=== PATIENT | female | born 1990 | race Caucasian/White ===

== ENCOUNTER → 2017-03-01 | Outpatient (CLI) | payer SELFPAY | LOC: RAD 14:03 | PROVIDERS: ATTEND Nurse Practitioner Women's Health | DX: O20.8 Other hemorrhage in early pregnancy (principal); Z3A.01 Less than 8 weeks gestation of pregnancy | CPT/HCPCS: 76801 ==

== ENCOUNTER 2017-03-23 14:51 | Emergency (ER) | payer MEDICAID ==
--- NOTE | 2017-03-23 16:17 | ER Document Report ---
ED Medical Screen (RME) - General Chief Complaint: Pelvic Pain Stated Complaint: PELVIC PAIN Time Seen by Provider: 03/23/17 16:15 Mode of Arrival: Ambulatory Information source: Patient Notes: This is a 26-year-old female who is 10 weeks (history of ultrasound at 7 weeks) who presents with sharp right lower quadrant pain. Patient denies fever. Patient denies any blood in the urine. Patient denies vaginal bleeding TRAVEL OUTSIDE OF THE [place] IN LAST 30 DAYS: No - Related Data Allergies/Adverse Reactions: No Known Allergies Allergy (Verified 03/23/17 16:09) Past Medical History Renal/ Medical History: Denies: Hx Peritoneal Dialysis Physical Exam - Vital signs Vitals: Temp Pulse Resp BP Pulse Ox 98.3 F 92 18 144/100 H 100 03/23/17 15:06 03/23/17 15:06 03/23/17 15:06 03/23/17 15:06 03/23/17 15:06 Course - Vital Signs Vital signs: Temp Pulse Resp BP Pulse Ox 98.3 F 92 18 144/100 H 100 03/23/17 15:06 03/23/17 15:06 03/23/17 15:06 03/23/17 15:06 03/23/17 15:06
[2017-03-23 16:55] LABS: ABSOLUTE EOSINOPHILS # (AUTO) 0.1 10^3/uL (0.0-0.6); ABSOLUTE LYMPHOCYTES (AUTO) 1.6 10^3/uL (0.5-4.7); ABSOLUTE MONOCYTES (AUTO) 0.7 10^3/uL (0.1-1.4); ABSOLUTE NEUT (AUTO) 8.8 10^3/uL (1.7-8.2); BASOPHILS % (AUTO) 0.2 % (0-2); EOSINOPHILS % (AUTO) 1.3 % (0-6); HEMATOCRIT 40.5 % (36.0-47.0); HGB HCT DIFFERENCE 1.5; MEAN CORPUSCULAR HEMOGLOBIN 30.5 pg (27.0-33.4); MEAN CORPUSCULAR HGB CONC 34.4 g/dL (32.0-36.0); MEAN CORPUSCULAR VOLUME 88 fl (80-97); MONOCYTES % (AUTO) 6.1 % (3-13); RED BLOOD COUNT 4.58 10^6/uL (3.72-5.28); RED CELL DISTRIBUTION WIDTH 12.5 % (11.5-14.0); SEGMENTED NEUTROPHILS % (AUTO) 78.4 % (42-78); WHITE BLOOD COUNT 11.2 10^3/uL (4.0-10.5)
[2017-03-23 17:01] LABS: APPEARANCE,URINE SLIGHTLY-CLOUDY; BILIRUBIN,URINE NEGATIVE (NEGATIVE); GLUCOSE, URINE NEGATIVE (NEGATIVE); KETONES,URINE NEGATIVE (NEGATIVE); LEUKOCYTE ESTERASE,URINE NEGATIVE (NEGATIVE); NITRITE,URINE NEGATIVE (NEGATIVE); PROTEIN,URINE NEGATIVE (NEGATIVE); URINE SPECIFIC GRAVITY 1.018; UROBILINOGEN,URINE NEGATIVE mg/dL (<2.0)
[2017-03-23 17:22] LABS: ALANINE AMINOTRANSFERASE 24 U/L (9-52); ALBUMIN 4.1 g/dL (3.5-5.0); ALKALINE PHOSPHATASE 88 U/L (38-126); ANION GAP 9 (5-19); ASPARTATE AMINO TRANSFERASE 19 U/L (14-36); BILIRUBIN,DIRECT 0.4 mg/dL (0.0-0.4); BILIRUBIN,TOTAL 0.6 mg/dL (0.2-1.3); BLOOD UREA NITROGEN 8 mg/dL (7-20); CALCIUM 9.9 mg/dL (8.4-10.2); CARBON DIOXIDE 26 mmol/L (22-30); CHLORIDE 103 mmol/L (98-107); GLUCOSE 116 mg/dL (75-110); POTASSIUM 4.4 mmol/L (3.6-5.0); SODIUM 138.2 mmol/L (137-145); TOTAL PROTEIN 7.3 g/dL (6.3-8.2)
--- NOTE | 2017-03-23 17:35 | ER Document Report ---
ED GI/ - General Mode of Arrival: Ambulatory Information source: Patient TRAVEL OUTSIDE OF THE [place] IN LAST 30 DAYS: No - HPI Patient complains to provider of: Abdominal pain - RLQ Onset: This morning Location: LLQ, RLQ Vaginal bleeding (Compared to normal period): None Associated symptoms: Other - see notes above <MARY BETH BAINS - Last Filed: 03/23/17 17:30> <JAYNE NEUMANN - Last Filed: 03/23/17 20:41> - General Chief Complaint: Pelvic Pain Stated Complaint: PELVIC PAIN Time Seen by Provider: 03/23/17 16:15 Notes: 26 year old female (10 weeks; ) presents to the ED complaining of bilateral lower quadrant abdominal pain that started at 0630 this morning. Patient reports the pain waxes and wanes between a sharp pain and an irritating pain. Patient states that the pain does not radiate to her back, but explains that it was exacerbated after urinating earlier today. Patient denies fever, hematuria, or vaginal bleeding. [facility] and has an appointment tomorrow to set her up with an PLACEMENT COORDINATOR. (MARY BETH BAINS) - Related Data Allergies/Adverse Reactions: No Known Allergies Allergy (Verified 03/23/17 16:09) Past Medical History - General Information source: Patient - Social History Smoking Status: Unknown if Ever Smoked Family History: Reviewed & Not Pertinent Patient has suicidal ideation: No Patient has homicidal ideation: No <MARY BETH BAINS - Last Filed: 03/23/17 17:30> - Social History Cigarette use (# per day): No Chew tobacco use (# tins/day): No Smoking Education Provided: No Frequency of alcohol use: None Family History: Hypertension. denies: Reviewed & Not Pertinent <JAYNE NEUMANN - Last Filed: 03/23/17 20:41> Review of Systems - Review of Systems Constitutional: No symptoms reported EENT: No symptoms reported Cardiovascular: No symptoms reported Respiratory: No symptoms reported Gastrointestinal: See HPI, Abdominal pain - bilateral lower quadrants Genitourinary: No symptoms reported Female Genitourinary: No symptoms reported Musculoskeletal: No symptoms reported Skin: No symptoms reported Hematologic/Lymphatic: No symptoms reported Neurological/Psychological: No symptoms reported <MARY BETH BAINS - Last Filed: 03/23/17 17:30> Physical Exam - General General appearance: Alert In distress: None - HEENT Head: Normocephalic, Atraumatic Eyes: Normal Extraocular movements intact: Yes Pupils: PERRL - Respiratory Respiratory status: No respiratory distress Breath sounds: Normal - Cardiovascular Rhythm: Regular Heart sounds: Normal auscultation - Abdominal Inspection: Normal Distension: No distension Tenderness: Tender - Bilateral pelvic pain with the right worse than left. - Back Back: Normal, Nontender. No: CVA tenderness - Extremities General upper extremity: Normal inspection, Normal ROM General lower extremity: Normal inspection, Normal ROM - Neurological Neuro grossly intact: Yes - Psychological Associated symptoms: Normal affect, Normal mood - Skin Skin Temperature: Warm Skin Moisture: Dry Skin Color: Normal <MARY BETH BAINS - Last Filed: 03/23/17 17:30> Course - Laboratory Result Diagrams: 03/23/17 16:41 03/23/17 16:41 <MARY BETH BAINS - Last Filed: 03/23/17 17:30> - Laboratory Result Diagrams: 03/23/17 16:41 03/23/17 16:41 - Diagnostic Test Radiology reviewed: Reports reviewed - Ultrasound shows a 10 week IUP with heart rate 175. There are no abnormalities seen. Ovaries were not seen due to overlying bowel gas. <JAYNE NEUMANN - Last Filed: 03/23/17 20:41> - Re-evaluation Re-evalutation: 03/23/17 20:36 The patient's blood pressure was elevated today with initial reading 144/101. The patient does have a family history of high blood pressure, and she reports her blood pressure was running high prior to her . (JAYNE NEUMANN) - Vital Signs Vital signs: Temp Pulse Resp BP Pulse Ox 98.3 F 83 18 131/72 H 98 03/23/17 15:06 03/23/17 18:53 03/23/17 15:06 03/23/17 18:53 03/23/17 18:53 - Laboratory Laboratory results interpreted by me: 03/23/17 03/23/17 03/23/17 16:41 16:41 16:41 WBC 11.2 H Seg Neutrophils % 78.4 H Absolute Neutrophils 8.8 H Glucose 116 H Urine Ascorbic Acid 40 H Discharge <MARY BETH BAINS - Last Filed: 03/23/17 17:30> <JAYNE NEUMANN - Last Filed: 03/23/17 20:41> - Discharge Clinical Impression: with 10 completed weeks gestation, Right lower quadrant abdominal pain High blood pressure Qualifiers: Hypertension type: essential hypertension Qualified Code(s): I10 - Essential ( primary) hypertension Condition: Stable Disposition: HOME, SELF-CARE Additional Instructions: Abdominal Pain: There are many causes of abdominal pain. Pain can mean a serious problem requiring surgery (such as appendicitis). It can also be an innocent problem that goes away on its own (such as a viral infection). Often, time must pass to determine the cause of pain. The physician does not feel that hospitalization is necessary, at present. Things may change within the next 24 hours. Call the doctor or come back for re- examination if any problems occur, such as: (1) Pain that becomes more severe, steady, or becomes concentrated in one specific area. Also, pain that is more severe with movement or coughing. (2) Vomiting that persists or becomes more frequent. (3) Blood in the vomitus, urine, or bowel movements. Blood in the stool may have a tarry or black appearance. (4) Shaking chills or fever greater than 100 degrees F. (5) The abdomen becomes more distended or swollen. (6) Bowel movements cease. (7) Failure to improve as expected. High Blood Pressure: When your blood pressure was taken today it was elevated. Today's reading was_144/101___. Hypertension: The patient has been informed that they may have Hypertension based on a blood pressure reading in the emergency department. I recommend that the patient call their primary care provider or a physician of their choice this week to arrange follow up for further evaluation of Hypertension. Sometimes, stress or illness causes a temporary elevation of your blood pressure. We suggest that you get your blood pressure measured three more times during the next few days to see if this is more than a temporary abnormality. If your blood pressure is greater than 150/90 on each occasion, you must have treatment. Some simple things you can do to help are: If you have blood pressure medicine but aren't using it regularly, start taking it again. Get some aerobic exercise for at least 20 minutes on a daily basis. (See your doctor before beginning a new exercise program.) Eat a low-fat diet. Lose excess weight. Avoid salty foods and avoid adding salt to any of the foods you eat. Avoid diet pills, decongestants, "energizing" herbs, and other medicines that elevate blood pressure. If left untreated, hypertension greatly enhances your risk for developing heart disease and strokes. Please don't ignore this problem. YOUR ULTRASOUND SHOWED A NORMAL 10 WEEK . NO CLEAR EXPLANATION WAS FOUND FOR YOUR PAIN. YOUR BLOOD PRESSURE WAS ELEVATED. FOLLOW UP WITH A LOCAL MEDICAL DOCTOR TO EVALUATE AND TREAT YOUR ELEVATED BLOOD PRESSURE. FOLLOW UP WITH THE HEALTH DEPARTMENT TOMORROW SCHEDULED. TAKE TYLENOL FOR PAIN IF NEEDED. LIMIT ACTIVITY UNTIL THE PAIN RESOLVES. RETURN TO THE EMERGENCY ROOM IF ANY NEW OR WORSENING SYMPTOMS. Salazar Attestation: 03/23/17 20:41 I personally performed the services described in the documentation, reviewed and edited the documentation which was dictated to the scribe in my presence, and it accurately records my words and actions. (JAYNE NEUMANN) Scribe Documentation - Scribe Written by Salazar:: Salazar Sahni, 03/23/2017 1737 acting as scribe for :: Jenny <MARY BETH BAINS - Last Filed: 03/23/17 17:30>
[2017-03-23 20:51] VITALS: BP 131/82
== END 2017-03-23 20:49 | disposition home or self-care (01) ==
LOC: ER 14:51
DX: O26.91 Pregnancy related conditions, unspecified, first trimester (principal); R10.2 Pelvic and perineal pain; O16.1 Unspecified maternal hypertension, first trimester; Z3A.10 10 weeks gestation of pregnancy
CPT/HCPCS: 36415; 76801; 80053; 81001; 85025; 86900; 86901; 99284

== ENCOUNTER → 2017-05-25 | Outpatient (CLI) | payer MEDICAID ==
[2017-05-25 15:41] LABS: CREATININE 0.51 mg/dL (0.52-1.25)
[2017-05-25 15:46] LABS: URINE CREATININE 94.4 mg/dL (16-327)
== END ==
LOC: OD 14:21
PROVIDERS: ATTEND Obstetrics & Gynecology
DX: O10.012 Pre-existing essential hypertension complicating pregnancy, second trimester (principal)
CPT/HCPCS: 36415; 82575; 84156

== ENCOUNTER → 2017-08-02 | Outpatient (CLI) | payer MEDICAID ==
[2017-08-02 16:13] LABS: HEMATOCRIT 33.4 % (36.0-47.0); HEMOGLOBIN 11.7 g/dL (12.0-15.5); HGB HCT DIFFERENCE 1.7; MEAN CORPUSCULAR HEMOGLOBIN 30.1 pg (27.0-33.4); MEAN CORPUSCULAR VOLUME 86 fl (80-97); RED BLOOD COUNT 3.89 10^6/uL (3.72-5.28); RED CELL DISTRIBUTION WIDTH 13.5 % (11.5-14.0); WHITE BLOOD COUNT 14.3 10^3/uL (4.0-10.5)
[2017-08-02 16:17] LABS: APPEARANCE,URINE SLIGHTLY-CLOUDY; BILIRUBIN,URINE NEGATIVE (NEGATIVE); GLUCOSE, URINE NEGATIVE (NEGATIVE); KETONES,URINE NEGATIVE (NEGATIVE); LEUKOCYTE ESTERASE,URINE NEGATIVE (NEGATIVE); NITRITE,URINE NEGATIVE (NEGATIVE); PROTEIN,URINE NEGATIVE (NEGATIVE); URINE SPECIFIC GRAVITY 1.016; UROBILINOGEN,URINE NEGATIVE mg/dL (<2.0)
[2017-08-02 16:27] LABS: URINE PROTEIN 13.3 mg/dL (<12)
[2017-08-02 16:37] LABS: ASPARTATE AMINO TRANSFERASE 15 U/L (14-36); CREATININE RESULT 0.58 mg/dL (0.52-1.25); LDH 338 U/L (313-618); URIC ACID 4.7 mg/dL (2.5-6.2)
== END ==
LOC: OD 15:12
PROVIDERS: ATTEND Registered Nurse Women's Health Care, Ambulatory
DX: O23.40 Unspecified infection of urinary tract in pregnancy, unspecified trimester (principal); R03.0 Elevated blood-pressure reading, without diagnosis of hypertension
CPT/HCPCS: 36415; 81001; 82565; 82570; 83615; 84156; 84450; 84550; 85027; 87086